=== PATIENT | female | born 1960 | race African-American/Black ===

== ENCOUNTER 2016-06-24 10:46 | Inpatient (IN) | payer OTHER ==
[2016-06-24 11:17] VITALS: BMI 26.9
--- NOTE | 2016-06-24 13:09 | HP ---
COWS - Scale Resting Pulse: 2= [place] 101-120 Sweatin= Chills/Flushing Restless Observation: 1= Difficult to Sit Still Pupil Size: 0= Normal to Room Light Bone or Joint Aches: 1= Mild Discomfort Runny Nose/ Eye Tearin= Nasal Congestion GI Upset > 30mins: 1= Stomach Cramp Tremor Observation: 1= Tremor [place], Not Seen Yawning Observation: 1= 1-2x During Session Anxiety or Irritability: 1=Feels Anxious/Irritable Goose Flesh Skin: 0=Smooth Skin COWS Score: 10 Admission ROS S - HPI Chief Complaint: I want to stop, I keep using Allergies/Adverse Reactions: Allergies Allergy/AdvReac Type Severity Reaction Status Date / Time No Known Allergies Allergy Verified 06/24/16 12:34 History of Present Illness: 56 yo woman here for detox from opiates/heroin. Was drinking etoh daily but stopped a week ago. No seizures but does have black outs. Was doing well on subxone until april 2016 when she relapsed due to family trigger - she is not sure if she will go back to suboxone but thinking about it. Exam Limitations: Clinical Condition - Ebola screening Have you traveled outside of the country in the last 21 days: No Have you had contact with anyone from an Ebola affected area: No Have you been sick,other than usual withdrawal symptoms: No Do you have a fever: No - Review of Systems Constitutional: Chills, Loss of Appetite, Malaise, Changes in sleep, Unintentional Wgt. Loss EENT: reports: Nose Congestion Respiratory: reports: No Symptoms reported Cardiac: reports: No Symptoms Reported GI: reports: Poor Appetite, Abdominal cramping : reports: No Symptoms Reported Musculoskeletal: reports: Back Pain, Muscle Pain Integumentary: reports: No Symptoms Reported Neuro: reports: Headache, Tremors Endocrine: reports: No Symptoms Reported Hematology: reports: No Symptoms Reported Psychiatric: reports: Judgement Intact, Mood/Affect Appropiate, Orientated x3, Anxious Other Systems: Reviewed and Negative Patient History - Patient Medical History Hx Anemia: No Hx Asthma: Yes Hx Chronic Obstructive Pulmonary Disease (COPD): No Hx Cancer: No Hx Cardiac Disorders: No Hx Congestive Heart Failure: No Hx Hypertension: No Hx Hypercholesterolemia: No Hx Pacemaker: No HX Cerebrovascular Accident: No Hx Seizures: No Hx Dementia: No Hx Diabetes: No Hx Gastrointestinal Disorders: No Hx Liver Disease: No Hx Genitourinary Disorders: No Hx Sexually Transmitted Disorders: No Hx Renal Disease (ESRD): No Hx Thyroid Disease: No Hx Human Immunodeficiency Virus (HIV): No Hx Hepatitis C: No Hx Depression: Yes (never hospitalized, hx meds) Hx Suicide Attempt: No Hx Bipolar Disorder: No Hx Schizophrenia: No - Patient Surgical History Past Surgical History: No Hx Neurologic Surgery: No Hx Cataract Extraction: No Hx Cardiac Surgery: No Hx Lung Surgery: No Hx Breast Surgery: No Hx Breast Biopsy: No Hx Abdominal Surgery: No Hx Appendectomy: No Hx Cholecystectomy: No Hx Genitourinary Surgery: Yes (tubal ligation ) Hx Section: No Hx Orthopedic Surgery: No Hx Hysterectomy: No Anesthesia Reaction: No - PPD History Previous Implant?: Yes Documented Results: Negative w/o proof Implanted On Prior R Admission?: No PPD to be Administered?: Yes - Reproductive History Patient is a Female of Child Bearing Age (11 -55 yrs old): Yes - Smoking Cessation Smoking history: Current every day smoker Have you smoked in the past 12 months: Yes Aproximately how many cigarettes per day: 20 Hx Chewing Tobacco Use: No Initiated information on smoking cessation: Yes 'Breaking Loose' booklet given: 06/24/16 (give on floor) - Substance & Tx. History Hx Alcohol Use: Yes Hx Substance Use: Yes Substance Use Type: Alcohol, Heroin Hx Substance Use Treatment: Yes (detox 15 yrs ago, 18mo rehab, hx methadone, hx suboxone) - Substances Abused Alcohol Route: Oral Frequency: Daily Date of Last Use: 06/17/16 Heroin Frequency: Daily Amount used: 8-10 bags Date of Last Use: 06/23/16 Family Disease History - Family Disease History Family Disease History: Heart Disease: Father (alive, htn, no etoh x 20 years), Mother (alive, htn) Admission Physical Exam BHS - Vital Signs Vital Signs: Vital Signs - 24 hr 06/24/16 11:10 Temperature 97.9 F Pulse Rate 111 H Respiratory 20 Rate Blood Pressure 156/79 - Physical General Appearance: Yes: Nourished, Appropriately Dressed, Mild Distress, Anxious HEENTM: Yes: Hearing grossly Normal, Normocephalic, Normal Voice, Nasal Congestion, Rhinorrhea Respiratory: Yes: Normal Breath Sounds, No Respiratory Distress Neck: Yes: No masses,lesions,Nodules, Supple Breast: Yes: Breast Exam Deferred Cardiology: Yes: Regular Rhythm, Tachycardia Abdominal: Yes: Soft Genitourinary: Yes: Within Normal Limits Back: Yes: Normal Inspection Musculoskeletal: Yes: full range of Motion, Gait Steady Extremities: Yes: Normal Inspection, Tremors Neurological: Yes: Fully Oriented, Alert, Normal Mood/Affect, Normal Response Integumentary: Yes: Normal Color, Warm Lymphatic: Yes: Within Normal Limits - Diagnostic (1) Asthma Current Visit: Yes Status: Chronic Qualifiers: Asthma severity: mild persistent Asthma complication type: uncomplicated Qualified Code(s): J45.30 - Mild persistent asthma, uncomplicated (2) Opioid dependence with withdrawal Current Visit: Yes Status: Chronic Cleared for Admission [facility] - Detox or Rehab [facility] Level of Care: Medically Managed Detox Regimen/Protocol: Methadone [facility] Breath Alcohol Content Breath Alcohol Content: 0 Urine Pregancy Test - Result Urine Test Results: Negative- NO Line Present Urine Drug Screen - Results Drug Screen Negative: No Urine Drug Screen Results: OPI-Opiates, MTD-Methadone, OXY-Oxycodone
[2016-06-24] MEDS ORDERED: MAG HYDROX/AL HYDROX/SIMETH 30 ML UNIT-DOSE CUP PO PRN (13:24)
[2016-06-24] MEDS ORDERED: MENTHOL/PHENOL 1 EACH UD MM PRN (13:24)
[2016-06-24] MEDS ORDERED: guaiFENesin/D-METHORPHAN HB 10 ML UNIT-DOSE CUPS PO PRN (13:24)
[2016-06-24] MEDS ORDERED: P-EPHED 60MG/TRIPROLIDI 2.5MG TABLET PO PRN (13:24)
[2016-06-24] MEDS ORDERED: MAGNESIUM CITRATE 300 ML BOTTLE PO PRN (13:24)
[2016-06-24] MEDS ORDERED: LOPERAMIDE HCL 2 MG CAPSULE PO PRN (13:24)
[2016-06-24] MEDS ORDERED: MAGNESIUM HYDROX 2400MG/30ML ORAL SUSPENSION 30 ML CUP PO PRN (13:24)
[2016-06-24] MEDS ORDERED: ACETAMINOPHEN 325 MG TABLET (FP) PO PRN (13:24)
[2016-06-24] MEDS ORDERED: BUDESONIDE/FORMETEROL FUMARATE 160/4.5 mcg INHALER IH PRN (13:25)
[2016-06-24] MEDS ORDERED: METHADONE HCL 10 MG TABLET (FOR DETOX USE ONLY) PO ONE ×2 (14:15→23:00)
[2016-06-24] MEDS: NICOTINE 21 MG/24 HOURS TOPICAL PATCH TD SCH (14:25)
[2016-06-24 18:08] LABS: URINE APPEARANCE CLEAR; URINE BILIRUBIN NEGATIVE (NEGATIVE); URINE BLOOD NEGATIVE (NEGATIVE); URINE COLOR LTYELLOW; URINE GLUCOSE (UA) NEGATIVE (NEGATIVE); URINE KETONE NEGATIVE (NEGATIVE); URINE NITRITE NEGATIVE (NEGATIVE); URINE PROTEIN NEGATIVE (NEGATIVE); URINE UROBILINOGEN NEGATIVE E.U./dl (0.2-1.0)
[2016-06-24 18:13] LABS: URINE LEUK ESTERASE TRACE (NEGATIVE)
[2016-06-24 18:18] LABS: URINE MUCUS RARE; URINE RBC <1 /hpf (0-3); URINE WBC 2 /hpf (3-5)
[2016-06-24] MEDS: diazePAM 5 MG TABLET PO PRN ×2 (18:26→22:49)
[2016-06-24] MEDS: IBUPROFEN 400 MG TABLET (FP) PO PRN (18:26)
[2016-06-24] MEDS: MONTELUKAST NA 10 MG TABLET PO SCH (22:45)
[2016-06-24] MEDS: THIAMINE HCL 100 MG TABLET (FP) PO SCH (22:45)
[2016-06-24] MEDS: diphenhydrAMINE HCL 50 MG CAPSULE PO PRN (22:46)
[2016-06-25] MEDS: ALBUTEROL SO4 6.7 GM HFA INHALER IH PRN ×2 (06:07→15:39)
[2016-06-25] MEDS: diazePAM 5 MG TABLET PO PRN ×4 (06:08→20:00)
[2016-06-25] MEDS ORDERED: METHADONE HCL 10 MG TABLET (FOR DETOX USE ONLY) PO ONE (10:00)
[2016-06-25 10:38] LABS: MCH 29.9 pg (25.7-33.7); MEAN CELL VOLUME 90.6 fl (80-96); MEAN PLT VOLUME 7.7 fl (7.5-11.1); PLATELET COUNT 227 K/MM3 (134-434); RDW 13.8 % (11.6-15.6); WHITE BLOOD COUNT 5.2 K/mm3 (4.0-10.0)
[2016-06-25] MEDS: NICOTINE 21 MG/24 HOURS TOPICAL PATCH TD SCH (10:45)
[2016-06-25] MEDS: PRENATAL VITAMINS W/ FOLIC ACID TABLET (FP) PO SCH (10:45)
[2016-06-25] MEDS: IBUPROFEN 400 MG TABLET (FP) PO PRN (10:47)
[2016-06-25 10:48] LABS: ALBUMIN 3.4 g/dl (3.4-5.0); ALK PHOS 58 U/L (45-117); ANION GAP 6 (8-16); BILIRUBIN,TOTAL 0.4 mg/dL (0.2-1.0); CALCIUM 9.4 mg/dL (8.5-10.1); CO2 31 mmol/L (21-32); CREATININE 0.7 mg/dL (0.55-1.02); GLUCOSE,RANDOM 75 mg/dL (74-106); SGOT/AST 17 U/L (15-37); SGPT/ALT 25 U/L (12-78); TOT PROT 6.7 g/dl (6.4-8.2)
--- NOTE | 2016-06-25 13:41 | PN ---
BHS COWS - Scale Resting Pulse: 1= [place] 81-100 Sweatin= Chills/Flushing Restless Observation: 3= Extraneous Movement Pupil Size: 1= Pupils >than Normal Bone or Joint Aches: 2= Severe Diffuse Aches Runny Nose/ Eye Tearin= Runny Nose/Eyes GI Upset > 30mins: 3= Vomiting/Diarrhea Tremor Observation of Outstretched Hands: 2= Slight Tremor Visible Yawning Observation: 1= 1-2x During Session Anxiety or Irritability: 2=Irritable/Anxious Goose Flesh Skin: 0=Smooth Skin COWS Score: 18 S Progress Note (SOAP) Subjective: alert,irritable,anxious,interrupted sleep,pain in the body and back Objective: 06/25/16 13:39 Vital Signs Temperature 98.1 F 06/25/16 09:41 Pulse Rate 89 06/25/16 09:41 Respiratory Rate 18 06/25/16 09:41 Blood Pressure 113/68 06/25/16 09:41 O2 Sat by Pulse Oximetry (%) ekg nsr,normal ecg Laboratory Last Values WBC 5.2 K/mm3 (4.0-10.0) 06/25/16 07:45 RBC 4.47 M/mm3 (3.60-5.2) 06/25/16 07:45 Hgb 13.3 GM/dL (10.7-15.3) 06/25/16 07:45 Hct 40.5 % (32.4-45.2) 06/25/16 07:45 MCV 90.6 fl (80-96) 06/25/16 07:45 MCHC 33.0 g/dl (32.0-36.0) 06/25/16 07:45 RDW 13.8 % (11.6-15.6) 06/25/16 07:45 Plt Count 227 K/MM3 (134-434) 06/25/16 07:45 MPV 7.7 fl (7.5-11.1) 06/25/16 07:45 Sodium 141 mmol/L (136-145) 06/25/16 07:45 Potassium 4.0 mmol/L (3.5-5.1) 06/25/16 07:45 Chloride 104 mmol/L (98-107) 06/25/16 07:45 Carbon Dioxide 31 mmol/L (21-32) 06/25/16 07:45 Anion Gap 6 (8-16) L 06/25/16 07:45 BUN 10 mg/dL (7-18) 06/25/16 07:45 Creatinine 0.7 mg/dL (0.55-1.02) 06/25/16 07:45 Creat Clearance w eGFR > 60 (>60) 06/25/16 07:45 Random Glucose 75 mg/dL (74-106) 06/25/16 07:45 Calcium 9.4 mg/dL (8.5-10.1) 06/25/16 07:45 Total Bilirubin 0.4 mg/dL (0.2-1.0) 06/25/16 07:45 AST 17 U/L (15-37) 06/25/16 07:45 ALT 25 U/L (12-78) 06/25/16 07:45 Alkaline Phosphatase 58 U/L (45-117) 06/25/16 07:45 Total Protein 6.7 g/dl (6.4-8.2) 06/25/16 07:45 Albumin 3.4 g/dl (3.4-5.0) 06/25/16 07:45 Urine Color Ltyellow 06/24/16 17:40 Urine Appearance Clear 06/24/16 17:40 Urine pH 6.0 (5.0-8.0) 06/24/16 17:40 Ur Specific [place] 1.009 (1.001-1.035) 06/24/16 17:40 Urine Protein Negative (NEGATIVE) 06/24/16 17:40 Urine Glucose (UA) Negative (NEGATIVE) 06/24/16 17:40 Urine Ketones Negative (NEGATIVE) 06/24/16 17:40 Urine Blood Negative (NEGATIVE) 06/24/16 17:40 Urine Nitrite Negative (NEGATIVE) 06/24/16 17:40 Urine Bilirubin Negative (NEGATIVE) 06/24/16 17:40 Urine Urobilinogen Negative E.U./dl (0.2-1.0) 06/24/16 17:40 Ur Leukocyte Esterase Trace (NEGATIVE) H 06/24/16 17:40 Urine RBC <1 /hpf (0-3) 06/24/16 17:40 Urine WBC 2 /hpf (3-5) 06/24/16 17:40 Ur Epithelial Cells Rare /hpf (FEW) 06/24/16 17:40 Urine Mucus Rare 06/24/16 17:40 RPR Titer Nonreactive (NONREACTIVE) 06/25/16 07:45 06/25/16 13:41 Assessment: 06/25/16 13:40 withdrawal symptom 06/25/16 13:41 Plan: continue detox
[2016-06-25] MEDS ORDERED: ALBUTEROL SO4 2.5/IPRATROPIUM 0.5 INH SOL 3 ML VIAL.NEB. NEB PRN (20:06)
[2016-06-25] MEDS: MONTELUKAST NA 10 MG TABLET PO SCH (22:36)
[2016-06-25] MEDS: diphenhydrAMINE HCL 50 MG CAPSULE PO PRN (22:36)
[2016-06-25] MEDS: THIAMINE HCL 100 MG TABLET (FP) PO SCH (22:36)
--- NOTE | 2016-06-26 00:48 | EKG ---
Test Reason : Blood Pressure : / mmHG Vent. Rate : 089 BPM Atrial Rate : 089 BPM P-R Int : 176 ms QRS Dur : 092 ms QT Int : 352 ms P-R-T Axes : 081 075 068 degrees QTc Int : 428 ms NORMAL SINUS RHYTHM NORMAL ECG NO PREVIOUS ECGS AVAILABLE Confirmed by FRANK FORREST MD ([id number]) on 06/26/2016 12:48:19 AM Referred By: Confirmed By:FRANK FORREST MD
[2016-06-26] MEDS: diazePAM 5 MG TABLET PO PRN ×3 (08:54→19:51)
[2016-06-26] MEDS: CYCLOBENZAPRINE HCL 10 MG TABLET (FP) PO PRN ×2 (08:54→22:38)
--- NOTE | 2016-06-26 09:32 | CONSULT ---
[facility] Psychiatric Consult - Data Date of interview: 06/26/16 Admission source: [facility] Identifying data: First admissiion to [facility] for this 56 y/o AA female seeking detox treatment on for heroin and alcohol dependence.Patient is single,a mother of six,domiciled and currently employed. Substance Abuse History: - Smoking Cessation. Smoking history: Current every day smoker. Have you smoked in the past 12 months: Yes. Aproximately how many cigarettes per day: 20. Hx Chewing Tobacco Use: No. Initiated information on smoking cessation: Yes. 'Breaking Loose' booklet given: 06/24/16 (give on floor ). - Substance & Tx. History. Hx Alcohol Use: Yes. Hx Substance Use: Yes. Substance Use Type: Alcohol, Heroin. Hx Substance Use Treatment: Yes (detox 15 yrs ago, 18mo rehab, hx methadone, hx suboxone). - Substances Abused. Alcohol. Route: Oral. Frequency: Daily. Date of Last Use: 06/17/16. Heroin. Frequency: Daily. Amount used: 8-10 bags. Date of Last Use: . Confirmed by patient in this interview. Medical History: Bronchial asthma and a history of tubal ligation. Psychiatric History: No reported history of psychiatric hospitalizations.Ms Vides indicates that she is currently under the care of a psychiatrist for suboxone maintenance." I don't have a psychiatric diagnosis except for drug use. " Patient denies history of suicide attempts.She suffers from chronic insomnia that has been favorably addressed with 25 mg of seroquel at bedtime (self-report ). Physical/Sexual Abuse/Trauma History: Patient denies. Additional Comment: Urine Drug Screen Results: OPI-Opiates, MTD-Methadone, OXY- Oxycodone.Noted. Mental Status Exam - Mental Status Exam Alert and Oriented to: Time, Place, Person Cognitive Function: Good Patient Appearance: Well Groomed Mood: Hopeful, Euthymic Affect: Appropriate, Normal Range Patient Behavior: Fatigued, Cooperative Speech Pattern: Clear, Appropriate Voice Loudness: Normal Thought Process: Intact, Goal Oriented Thought Disorder: Not Present Hallucinations: Denies Suicidal Ideation: Denies Homicidal Ideation: Denies Insight/Judgement: Fair Sleep: Poorly, Difficulty falling asleep Appetite: Good Muscle strength/Tone: Normal Gait/Station: Normal Psychiatric Findings - Problem List ([place] 1, 2,3) (1) Opioid dependence with withdrawal Current Visit: Yes Status: Acute (2) Alcohol abuse Current Visit: Yes Status: Inactive (3) Asthma Current Visit: Yes Status: Chronic Qualifiers: Asthma severity: mild persistent Asthma complication type: uncomplicated Qualified Code(s): J45.30 - Mild persistent asthma, uncomplicated (4) Insomnia Current Visit: Yes Status: Acute - Initial Treatment Plan Initial Treatment Plan: Psychoeducation.Detoxification.Seroquel 25 mg po hs to address insomnia.Side effects/benefits discussed with the patient.She consents, verbally,to [facility] careplan.Observation.
[2016-06-26] MEDS ORDERED: METHADONE HCL 5 MG TABLET (FOR DETOX USE ONLY) PO ONE (10:00)
[2016-06-26] MEDS: PRENATAL VITAMINS W/ FOLIC ACID TABLET (FP) PO SCH (10:49)
[2016-06-26] MEDS: NICOTINE 21 MG/24 HOURS TOPICAL PATCH TD SCH (10:49)
[2016-06-26] MEDS: cloNIDine HCL 0.1 MG TABLET PO SCH ×2 (10:49→22:38)
--- NOTE | 2016-06-26 13:02 | PN ---
BHS COWS - Scale Resting Pulse: 0= [place] 80 or Below Sweatin=Flushed/Facial Moisture Restless Observation: 3= Extraneous Movement Pupil Size: 1= Pupils >than Normal Bone or Joint Aches: 2= Severe Diffuse Aches Runny Nose/ Eye Tearin= Runny Nose/Eyes GI Upset > 30mins: 2= Nausea/Diarrhea Tremor Observation of Outstretched Hands: 2= Slight Tremor Visible Yawning Observation: 1= 1-2x During Session Anxiety or Irritability: 2=Irritable/Anxious Goose Flesh Skin: 0=Smooth Skin COWS Score: 17 BHS Progress Note (SOAP) Subjective: ALERT,IRRITABLE,ANXIOUS,INTERRUPTED SLEEP,PAIN IN THE BODY AND BACK Objective: 06/26/16 13:01 Vital Signs Temperature 97.4 F L 06/26/16 11:27 Pulse Rate 94 H 06/26/16 11:27 Respiratory Rate 18 06/26/16 11:27 Blood Pressure 105/65 06/26/16 11:27 O2 Sat by Pulse Oximetry (%) Assessment: 06/26/16 13:01 WITHDRAWAL SYMPTOM Plan: CONTINUE DETOX
[2016-06-26] MEDS: ALBUTEROL SO4 6.7 GM HFA INHALER IH PRN ×2 (17:29→22:40)
[2016-06-26] MEDS: THIAMINE HCL 100 MG TABLET (FP) PO SCH (22:38)
[2016-06-26] MEDS: QUEtiapine FUMARATE 25 MG TABLET (FP) PO SCH (22:38)
[2016-06-26] MEDS: MONTELUKAST NA 10 MG TABLET PO SCH (22:38)
[2016-06-27] MEDS ORDERED: METHADONE HCL 5 MG TABLET (FOR DETOX USE ONLY) PO ONE (10:00)
[2016-06-27] MEDS: cloNIDine HCL 0.1 MG TABLET PO SCH ×2 (10:45→22:37)
[2016-06-27] MEDS: PRENATAL VITAMINS W/ FOLIC ACID TABLET (FP) PO SCH (10:55)
[2016-06-27] MEDS: NICOTINE 21 MG/24 HOURS TOPICAL PATCH TD SCH (10:55)
[2016-06-27] MEDS: IBUPROFEN 400 MG TABLET (FP) PO PRN (11:06)
[2016-06-27] MEDS: diazePAM 5 MG TABLET PO PRN (11:06)
--- NOTE | 2016-06-27 13:22 | PN ---
BHS Progress Note (SOAP) Subjective: sweats, low back pain Objective: 06/27/16 13:21 Vital Signs Temperature 99.3 F 06/27/16 10:16 Pulse Rate 83 06/27/16 10:16 Respiratory Rate 18 06/27/16 10:16 Blood Pressure 96/55 06/27/16 10:16 O2 Sat by Pulse Oximetry (%) Laboratory Tests 06/24/16 06/25/16 06/25/16 17:40 07:45 07:45 WBC 5.2 RBC 4.47 Hgb 13.3 Hct 40.5 MCV 90.6 MCHC 33.0 RDW 13.8 Plt Count 227 MPV 7.7 Sodium 141 Potassium 4.0 Chloride 104 Carbon Dioxide 31 Anion Gap 6 L BUN 10 Creatinine 0.7 Creat Clearance w eGFR > 60 Random Glucose 75 Calcium 9.4 Total Bilirubin 0.4 AST 17 ALT 25 Alkaline Phosphatase 58 Total Protein 6.7 Albumin 3.4 Urine Color Ltyellow Urine Appearance Clear Urine pH 6.0 Ur Specific [place] 1.009 Urine Protein Negative Urine Glucose (UA) Negative Urine Ketones Negative Urine Blood Negative Urine Nitrite Negative Urine Bilirubin Negative Urine Urobilinogen Negative Ur Leukocyte Esterase Trace H Urine RBC <1 Urine WBC 2 Ur Epithelial Cells Rare Urine Mucus Rare RPR Titer 06/25/16 07:45 WBC RBC Hgb Hct MCV MCHC RDW Plt Count MPV Sodium Potassium Chloride Carbon Dioxide Anion Gap BUN Creatinine Creat Clearance w eGFR Random Glucose Calcium Total Bilirubin AST ALT Alkaline Phosphatase Total Protein Albumin Urine Color Urine Appearance Urine pH Ur Specific [place] Urine Protein Urine Glucose (UA) Urine Ketones Urine Blood Urine Nitrite Urine Bilirubin Urine Urobilinogen Ur Leukocyte Esterase Urine RBC Urine WBC Ur Epithelial Cells Urine Mucus RPR Titer Nonreactive pt aox3 in nad lying in bed Assessment: 06/27/16 13:22 withdrawl sx's lbp Plan: cont. detox incresase fluids lidocaine patch
[2016-06-27] MEDS ORDERED: LIDOCAINE 5% TOPICAL PATCH TP ONE (13:45)
[2016-06-27] MEDS: CYCLOBENZAPRINE HCL 10 MG TABLET (FP) PO PRN ×2 (14:22→22:37)
[2016-06-27] MEDS: hydrOXYzine PAMOATE 50 MG CAPSULE (FP) PO PRN (15:34)
[2016-06-27] MEDS: QUEtiapine FUMARATE 25 MG TABLET (FP) PO SCH (22:37)
[2016-06-27] MEDS: THIAMINE HCL 100 MG TABLET (FP) PO SCH (22:37)
[2016-06-27] MEDS: MONTELUKAST NA 10 MG TABLET PO SCH (22:37)
[2016-06-27] MEDS: ALBUTEROL SO4 6.7 GM HFA INHALER IH PRN (22:49)
[2016-06-28] MEDS: CYCLOBENZAPRINE HCL 10 MG TABLET (FP) PO PRN ×2 (06:32→20:21)
[2016-06-28] MEDS: IBUPROFEN 400 MG TABLET (FP) PO PRN (06:33)
[2016-06-28] MEDS ORDERED: METHADONE HCL 10 MG TABLET (FOR DETOX USE ONLY) PO ONE (10:00)
[2016-06-28] MEDS ORDERED: LIDOCAINE 5% TOPICAL PATCH TP SCH (10:00)
[2016-06-28] MEDS: cloNIDine HCL 0.1 MG TABLET PO SCH ×2 (10:18→22:44)
[2016-06-28] MEDS: PRENATAL VITAMINS W/ FOLIC ACID TABLET (FP) PO SCH (10:19)
[2016-06-28] MEDS: NICOTINE 21 MG/24 HOURS TOPICAL PATCH TD SCH (10:19)
[2016-06-28] MEDS: ALBUTEROL SO4 6.7 GM HFA INHALER IH PRN ×2 (10:20→22:44)
--- NOTE | 2016-06-28 11:39 | PN ---
BHS Progress Note (SOAP) Subjective: back pain Objective: 06/28/16 11:38 Vital Signs Temperature 98.1 F 06/28/16 10:28 Pulse Rate 95 H 06/28/16 10:28 Respiratory Rate 18 06/28/16 10:28 Blood Pressure 110/61 06/28/16 10:28 O2 Sat by Pulse Oximetry (%) awake/alert ambulating no acute distress Assessment: 06/28/16 11:39 withdrawal sx Plan: continue detox increase fluids motrin 800mg prn d/c in am
[2016-06-28] MEDS ORDERED: IBUPROFEN 400 MG TABLET (FP) PO PRN (11:41)
[2016-06-28] MEDS: hydrOXYzine PAMOATE 50 MG CAPSULE (FP) PO PRN (22:43)
[2016-06-28] MEDS: THIAMINE HCL 100 MG TABLET (FP) PO SCH (22:44)
[2016-06-28] MEDS: MONTELUKAST NA 10 MG TABLET PO SCH (22:44)
[2016-06-28] MEDS: QUEtiapine FUMARATE 25 MG TABLET (FP) PO SCH (22:44)
[2016-06-29] MEDS: CYCLOBENZAPRINE HCL 10 MG TABLET (FP) PO PRN (05:39)
[2016-06-29] MEDS ORDERED: METHADONE HCL 5 MG TABLET (FOR DETOX USE ONLY) PO ONE (06:00)
[2016-06-29 07:08] VITALS: BP 138/64; PULSE 82; TEMP 98.2
--- NOTE | 2016-06-29 08:54 | DS ---
[facility] Detox Discharge Summary Admission Date: 06/24/16 Discharge Date: 06/29/16 - History Present History: Opioid Dependence Additional Comments: alcohol abuse - Physical Exam Results Vital Signs: Vital Signs Temperature 98.2 F 06/29/16 07:07 Pulse Rate 82 06/29/16 07:07 Respiratory Rate 18 06/29/16 07:07 Blood Pressure 138/64 06/29/16 07:07 O2 Sat by Pulse Oximetry (%) - Treatment Hospital Course: Detox Protocol Followed, Detoxed Safely, Responded well, Discharged Condition Good - Medication Discharge Medications: Ambulatory Orders Albuterol Sulfate [Proair Respiclick] 90 mcg IH PRN PRN 06/24/16 Budesonide/Formeterol Fumarate [SYMBICORT 160/4.5mcg -] 1 inh IH PRN PRN Montelukast Na [Singulair -] 10 mg PO HS 06/24/16 Quetiapine Fumarate [Seroquel -] 25 mg PO HS 06/24/16 Quetiapine Fumarate [Seroquel -] 25 mg PO HS #30 tablet 06/26/16 - Diagnosis (1) Insomnia Current Visit: Yes Status: Chronic Qualifiers: Insomnia type: unspecified Qualified Code(s): G47.00 - Insomnia, unspecified (2) Opioid dependence with withdrawal Current Visit: Yes Status: Acute (3) Asthma Current Visit: Yes Status: Chronic Qualifiers: Asthma severity: mild persistent Asthma complication type: uncomplicated Qualified Code(s): J45.30 - Mild persistent asthma, uncomplicated (4) Alcohol abuse Current Visit: Yes Status: Chronic - AMA Did Patient Leave Against Medical Advice: No
== END 2016-06-29 09:35 | disposition home or self-care (01) | DRG 897 ==
LOC: YASAS 10:46 → Y6N 13:28
PROVIDERS: ADMIT Internal Medicine; ATTEND Internal Medicine Addiction Medicine
PROC: HZ2ZZZZ Detoxification Services for Substance Abuse Treatment (ICD-10-PCS; principal; 2016-06-24)
DX: F11.23 Opioid dependence with withdrawal (principal); F10.10 Alcohol abuse, uncomplicated; F17.210 Nicotine dependence, cigarettes, uncomplicated; G47.00 Insomnia, unspecified; J45.30 Mild persistent asthma, uncomplicated
CPT/HCPCS: 36415; 80053; 81003; 81015; 85027; 86593; 93005; 93010